=== PATIENT | female | born 1985 | race Caucasian/White ===

== ENCOUNTER 2019-09-02 16:14 | Outpatient (CLI) | payer OTHER ==
--- NOTE | 2019-09-02 16:27 | RAD ---
EXAM: Chest PA and lateral: HISTORY: Chest pain of uncertain etiology, sternal chest pain COMPARISON: None FINDINGS: Heart size:Within normal limits. Lungs:Clear of acute process. No confluent pneumonia, overt edema, pleural effusion, or other acute process. IMPRESSION: No significant acute intrathoracic disease.
== END 2019-09-02 16:15 | disposition home or self-care (01) ==
LOC: BICRAD 16:14
PROVIDERS: ATTEND Family Medicine
DX: R07.89 Other chest pain (principal)
CPT/HCPCS: 71046